=== PATIENT | male | born 1970 | race Hispanic/Latino ===

== ENCOUNTER → 2021-03-13 | Day surgery (SDC) | payer OTHER ==
[~2021-03-13] MED LIST: BENAZEPRIL HCL10 MG PO; LEVOTHYROXINE13 MCG PO; PRAVASTATIN SOD20 MG PO
[2021-03-13 12:30] VITALS: BP 124/89
== END | disposition home or self-care (01) ==
LOC: OR 08:56
PROVIDERS: ATTEND Internal Medicine Gastroenterology
DX: Z12.11 Encounter for screening for malignant neoplasm of colon (principal); D12.2 Benign neoplasm of ascending colon; D12.3 Benign neoplasm of transverse colon; D12.4 Benign neoplasm of descending colon; K64.8 Other hemorrhoids; E03.9 Hypothyroidism, unspecified; I10 Essential (primary) hypertension; E78.5 Hyperlipidemia, unspecified; K21.9 Gastro-esophageal reflux disease without esophagitis; Z88.2 Allergy status to sulfonamides; Z01.810 Encounter for preprocedural cardiovascular examination; Z01.812 Encounter for preprocedural laboratory examination; Z20.822 Contact with and (suspected) exposure to COVID-19; Z68.31 Body mass index [BMI] 31.0-31.9, adult
CPT/HCPCS: 45384; 45385; 93005; U0002; 45378